=== PATIENT | female | born 1945 | race Hispanic/Latino ===

== ENCOUNTER 2017-07-20 13:05 | Outpatient (CLI) | payer MEDICARE ==
--- NOTE | 2017-07-21 15:41 | Mammography Report ---
BILATERAL DIGITAL SCREENING MAMMOGRAM with CAD: 07/20/17 13:05:00 CLINICAL: Routine screening. COMPARISON: 08/16/12 FINDINGS: The breasts are mostly fatty with bilateral residual retroareolar fibroglandular densities.No mass, architectural distortion or suspicious calcifications. IMPRESSION: No mammographic evidence of malignancy. BI-RADS CATEGORY: 1 -- Negative RECOMMENDATION: Routine mammographic screening in one year. COMMENT: Patient follow-up letters are generated by our [employer] application.
== END 2017-07-20 13:06 | disposition home or self-care (01) ==
LOC: MAMMO 13:05
PROVIDERS: ATTEND Internal Medicine
DX: Z12.31 Encounter for screening mammogram for malignant neoplasm of breast (principal)
CPT/HCPCS: 77067

== ENCOUNTER 2018-01-03 11:17 | Outpatient (CLI) | payer MEDICARE ==
--- NOTE | 2018-01-03 16:34 | Cat Scan Report ---
FINAL REPORT EXAM: CT LUMBAR SPINE WO CON HISTORY: INTERVERTEBRAL DISC DISPLACEMENT TECHNIQUE: Axial helical imaging through the lumbar spine with sagittal and coronal reformatted images obtained. Comparison: None CTDI : 13.04, DLP 348.07 FINDINGS: There is mild levocurvature of the lumbar spine. There is grade 1/grade 2 anterolisthesis L4 on L5. The vertebral heights are maintained. There is loss of height of the L1-L2 and L2-L3 discs There is loss of height of the L4-L5 and L5-S1 discs with associated degenerative endplate change. There is degenerative facet change in the lower lumbar spine. Visualization detail the contents of the lumbar canal is somewhat limited by artifact. However, there appears to be mild to moderate canal stenosis at L3-L4 and marked canal stenosis at L4-L5 secondary to spondylitic change. The paraspinous soft tissues are unremarkable. IMPRESSION: 1. 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 2. Grade 1/grade 2 anterolisthesis L4 on L5.
== END 2018-01-03 11:18 | disposition home or self-care (01) ==
LOC: CT 11:17
PROVIDERS: ATTEND Internal Medicine
DX: M51.27 Other intervertebral disc displacement, lumbosacral region (principal); M47.896 Other spondylosis, lumbar region; M48.061 Spinal stenosis, lumbar region without neurogenic claudication; M43.16 Spondylolisthesis, lumbar region; E78.00 Pure hypercholesterolemia, unspecified; I10 Essential (primary) hypertension; Z88.6 Allergy status to analgesic agent; Z87.891 Personal history of nicotine dependence; Z90.710 Acquired absence of both cervix and uterus; Z90.89 Acquired absence of other organs
CPT/HCPCS: 72131